=== PATIENT | female | born 1990 | race American Indian/Alaskan Native ===

== ENCOUNTER 2020-12-31 01:06 | Inpatient (IN) | payer MEDICAID ==
[2020-12-31] MEDS ORDERED: LIDOCAINE (2%) 20 MG/1 ML VIAL 20 ML MDV INFILTRATI ONE ×2 (01:15→02:01)
[2020-12-31] MEDS ORDERED: OXYTOCIN 10 UNIT/1 ML INJ ONE (01:15)
[2020-12-31] MEDS ORDERED: LOPERAMIDE 2 MG CAP PO PRN (02:01)
[2020-12-31] MEDS ORDERED: ePHEDrine SULFATE 50 MG/1 ML INJ IV PRN (02:01)
[2020-12-31] MEDS ORDERED: TERBUTALINE 1 MG/1 ML INJ SUB-Q PRN (02:01)
[2020-12-31] MEDS ORDERED: METHYLERGONOVINE MALEATE 0.2 MG/ML VIAL IM PRN (02:01)
[2020-12-31] MEDS ORDERED: CARBOPROST TROMETHAMINE 250 MCG/1 ML INJ IM PRN (02:01)
[2020-12-31] MEDS ORDERED: OXYTOCIN 10 UNIT/1 ML INJ IM PRN (02:01)
[2020-12-31] MEDS ORDERED: miSOPROStol 200 MCG TAB PR PRN (02:01)
[2020-12-31] MEDS ORDERED: OXYTOCIN 10 UNIT/1 ML INJ IM ONE (02:05)
[2020-12-31] MEDS ORDERED: LANOLIN/ZINC/DIMETHICONE (LANSINOH) 7 GM TP PRN (02:06)
[2020-12-31] MEDS ORDERED: MAGNESIUM HYDROXIDE (MOM) ORAL LIQD UDC PO PRN (02:06)
[2020-12-31] MEDS ORDERED: WITCH HAZEL/ GLYCERIN PAD TP PRN (02:06)
--- NOTE | 2020-12-31 02:14 | History and Physical Report ---
History of Present Illness Date of examination: 12/31/20 Date of admission: 12/31/20 02:01 Chief complaint: Contractions and leaking of water History of present illness: 30 year old female presents to L&D in active labor with urge to push . Patient reports leaking of clear fluid from vagina around midnight tonight. No records are available. labs were drawn upon admission. Patient states she receives care at [facility] and she states her due date is 01/07/21. Pt. states she is negative for GBS. Past History Past Medical History: other (obesity) Past Surgical History: no surgical history [facility] History: denies: abnormal PAP smear, chlamydia, gonorrhea, hepatitis B, hepatitis C, herpes, HIV, syphilis, trichomonas Family/Genetic History: none Social history: lives with family, full code. denies: smoking, alcohol abuse, prescription drug abuse, IV drug use - Obstetrical History Expected Date of Delivery: 01/07/21 Actual Gestation: 39 Week(s) 0 Day(s) : 8 Para: 2 Hx # Term Pregnancies: 1 Number of Pregnancies: 1 Spontaneous Abortions: 1 Induced : 4 Number of Living Children: 2 Medications and Allergies Allergies Allergy/AdvReac Type Severity Reaction Status Date / Time No Known Allergies Allergy Unverified 12/30/20 11:52 Home Medications Medication Instructions Recorded Confirmed Last Taken Type No Known Home Medications [No 12/30/20 12/30/20 Unknown History Reported Home Medications] Active Meds: Active Medications Hydrocodone Bitart/Acetaminophen (Hydrocodone/Acetaminophen 5-325 Mg Tab) 2 each PO Q6H PRN PRN Reason: Pain, Moderate (4-6) Carboprost Tromethamine (Carboprost Tromethamine 250 Mcg/1 Ml Inj) 250 mcg IM ONCE PRN PRN Reason: Uterine Bleeding Ephedrine Sulfate (Ephedrine Sulfate 50 Mg/1 Ml Inj) 10 mg IV Q2M PRN PRN Reason: Hypotension Oxytocin/Sodium Chloride (Pitocin/Ns 30 Unit/500ml) 30 units in 500 mls @ 2 mls/hr IV TITR REBECCA; Protocol Lactated Ringer's (Lactated Ringers) 1,000 mls @ 125 mls/hr IV DIRECT REBECCA Oxytocin/Sodium Chloride (Pitocin/Ns 30 Unit/500ml) 30 units in 500 mls @ 40 mls/hr IV TITR REBECCA; Protocol Ibuprofen (Ibuprofen 600 Mg Tab) 600 mg PO Q6H REBECCA Loperamide HCl (Loperamide 2 Mg Cap) 2 mg PO ONCE PRN PRN Reason: give with Hemabate Magnesium Hydroxide (Magnesium Hydroxide (Mom) Oral Liqd Udc) 30 ml PO HS PRN PRN Reason: Constipation Misoprostol (Misoprostol 200 Mcg Tab) 800 mcg UT ONCE PRN PRN Reason: Uterine Bleeding Multi-Ingredient Ointment (Lanolin/Zinc/Dimethicone (Lansinoh) 7 Gm) 1 applic TP PRN PRN PRN Reason: Sore Nipples Oxytocin (Oxytocin 10 Unit/1 Ml Inj) 10 unit IM ONCE PRN PRN Reason: Uterine Bleeding Oxytocin (Oxytocin 10 Unit/1 Ml Inj) 10 unit IM ONCE ONE Stop: 12/31/20 02:06 Sodium Chloride (Sodium Chloride 0.9% 10 Ml Flush Syringe) 10 ml IV PRN NR Witch Emelina/Glycerin (Witch Emelina/ Glycerin Pad) 1 each TP PRN PRN PRN Reason: Hemorrhoid/cleansing/soothing Review of Systems All systems: negative (contractions, leaking of water) - Physical Exam Abdomen: Positive: normal appearance, soft. Negative: distention, tenderness, guarding, rigidity Genitourinary (Female): Positive: normal external genitalia, normal perenium. Negative: perineal/vulvar lesions Uterus: Positive: enlarged. Negative: tender Anus/Rectum: Positive: normal perianal skin Extremities: Negative: tenderness, edema - Obstetrical Uterine Contraction Monitor Mode: External Cervical Dilatation: 9 Cervical Effacement Percentage: 100 station: 0 Uterine Contraction Pattern: Regular Uterine Contraction Intensity: Strong/Firm Results All other labs normal. Assessment and Plan A: at 39 weeks gestation. Active advanced labor. No records available. P: Admit. Anticipate precipitous . Draw labs. Request records.
[2020-12-31] MEDS ORDERED: LACTATED RINGERS 1,000 ML IV SCH (02:15)
--- NOTE | 2020-12-31 02:15 | Procedure Note ---
OB Delivery Note - Delivery Date of Delivery: 12/31/20 Surgeon: JOHN BLANCO Estimated blood loss: other (250 cc) - Vaginal Delivery presentation: vertex Intrapartum events: precipitous labor- <3hr Delivery induction: none Delivery monitor: external FHT, external uterine, internal FHT Route of delivery: Delivery placenta: spontaneous Delivery cord: nuchal cord, 3 umbilical vessels Episiotomy: none Delivery laceration: none Anesthesia: none Delivery comments: Spontaneous vaginal delivery at 01:30 of liveborn female weighing 5 lb. 5.2 oz. over intact perineum with apgars of 8/9. Precipitous delivery; was atraumatic. Loose nuchal cord times 1, manually reduced. Baby placed skin to skin with mom immediatately after . Baby dried with warm towels and s uctioned with bulb syringe. Spontaneous cry and respirations. 3 vessel cord double clampted and cut. Baby taken to radiant warmer for suctioning. Cord blood obtained. Spontaneous delivery of intact placenta and membranes. Fundus firm and midline. Pitocin given after delivery of placenta. Fundus firm and midline. No lacerations noted. Vaginal sweep negative. Sponge count correct. Mother and baby stable.
[2020-12-31] MEDS: HYDROcodone/ACETAMINOPHEN 5-325 MG TAB PO PRN ×2 (02:22→09:43)
[2020-12-31 02:30] LABS: Hematocrit 37.3 % (30.3-42.9); Mean Corpuscular HGB Conc 32 % (30-34); Mean Corpuscular Volume 81 fl (79-97); Platelet Count 285 K/mm3 (140-440); Red Cell Distribution Width 15.2 % (13.2-15.2)
[2020-12-31] MEDS ORDERED: OXYTOCIN DRIP 30 UNITS/500 ML BAG IV SCH ×2 (03:00)
[2020-12-31 03:04] LABS: Hepatitis C Virus Antibody Non-Reactive (NonReactive)
[2020-12-31] MEDS: IBUPROFEN 600 MG TAB PO SCH ×4 (06:26→23:33)
[2020-12-31] MEDS ORDERED: diphenhydrAMINE 25 MG CAP PO PRN (11:52)
[2020-12-31 16:36] LABS: Hemoglobin 9.7 gm/dl (10.1-14.3)
[2021-01-01] MEDS: IBUPROFEN 600 MG TAB PO SCH ×3 (05:25→16:26)
--- NOTE | 2021-01-01 09:22 | Progress Note ---
Assessment and Plan A: S/P Asymptomatic anemia P: Continue routine pp care Fe prescribed D/C home in am Subjective - Subjective Date of service: 01/01/21 Principal diagnosis: s/p Patient reports: appetite normal, voiding normally, pain well controlled, ambulating normally : doing well, nursing well Objective - Vital Signs Latest vital signs: Vital Signs Temp Pulse Resp BP Pulse Ox 01/01/21 05:25 20 01/01/21 05:10 98.0 F 60 18 106/55 98 12/31/20 23:33 20 12/31/20 16:25 97.8 F 66 20 107/59 98 12/31/20 12:10 98.0 F 66 20 94/60 99 Intake and Output 12/31/20 01/01/21 01/01/21 22:59 06:59 14:59 Intake Total 540 300 Balance 540 300 Intake: Oral 240 Intake, Free Water 300 300 Other: Total, Intake Amount 240 # Voids Void 1 2 - Exam Breasts: Present: normal Abdomen: Present: normal appearance, soft, normal bowel sounds Vulva: both: normal Uterus: Present: normal, firm, fundal height below umbilicus Extremities: Present: normal - Labs Labs: Abnormal lab results 12/31/20 Range/Units 15:07 Hgb 9.7 L (10.1-14.3) gm/dl
[2021-01-01] MEDS: FERROUS SULFATE 325 MG TAB PO SCH ×2 (12:28→22:43)
[2021-01-02] MEDS: IBUPROFEN 600 MG TAB PO SCH ×3 (02:26→12:06)
[2021-01-02] MEDS ORDERED: medroxyPROGESTERone ACETATE 150 MG/ML SYRINGE IM NR (12:28)
--- NOTE | 2021-01-02 12:31 | Progress Note ---
Assessment and Plan A: PP Day #2 Asymptomatic Anemia P: Follow Routine orders Continue PO FeSo4 Depo Provera 150mg IM prior to discharge D/C Home today RTO in 3 Weeks for Sterilization Consult Subjective - Subjective Date of service: 01/02/21 Principal diagnosis: s/p Patient reports: appetite normal, voiding normally, pain well controlled, flatus, bowel movement, ambulating normally : in NICU Objective - Vital Signs Latest vital signs: Vital Signs Temp Pulse Resp BP BP Pulse Ox 01/02/21 08:40 98.2 F 76 20 104/66 01/01/21 23:49 98.6 F 72 16 103/63 100 Intake and Output 01/01/21 01/02/21 01/02/21 22:59 06:59 14:59 Intake Total 240 480 360 Output Total 300 400 Balance 240 180 -40 Intake: Oral 240 240 360 Intake, Free Water 240 Output: Urine 300 400 Void 300 400 Other: Total, Intake Amount 240 240 360 Total, Output Amount 300 400 - Exam Breasts: Present: normal Cardiovascular: Present: Regular rate Lungs: Present: Clear to auscultation, Normal air movement Abdomen: Present: normal appearance, soft, normal bowel sounds Uterus: Present: normal, firm, fundal height below umbilicus Extremities: Present: normal
--- NOTE | 2021-01-02 12:32 | Discharge Summary ---
Providers - Providers Date of Admission: 12/31/20 02:01 Date of discharge: 01/02/21 Attending physician: STACI MAYEN MD Primary care physician: STACI MAYEN MD Hospitalization Reason for admission: active labor Delivery: Episiotomy: none Laceration: none Other procedures: none complications: none Discharge diagnosis: IUP at term delivered baby: female Condition at discharge: Good Disposition: DC-01 TO HOME OR SELFCARE Plan - Provider Discharge Summary Activity: routine, no sex for 6 weeks, no heavy lifting 4 weeks, no strenuous exercise Diet: routine Instructions: routine Additional instructions: [] Smoking cessation referral if applicable(refer to patient education folder for contact #) [] Refer to [facility]'s [facility] Booklet Call your doctor immediately for: * Fever > 100.5 * Heavy vaginal bleeding ( >1 pad per hour) * Severe persistent headache * Shortness of breath * Reddened, hot, painful area to leg or breast * Drainage or odor from incision. * Keep incision clean and dry at all times and follow doctor's instructions regarding bathing/showering - Follow up plan Follow up: STACI MAYEN MD [Primary Care Provider] - 01/23/21
[2021-01-02 17:35] VITALS: BP 118/56
== END 2021-01-02 18:10 | disposition home or self-care (01) | DRG 775 ==
LOC: TRG 01:06 → LD 01:14 → TRG 02:01 → LD 02:01 → OB 03:54
PROC: 10E0XZZ Delivery of Products of Conception, External Approach (ICD-10-PCS; principal; 2020-12-31)
DX: O62.3 Precipitate labor (principal); Z3A.39 39 weeks gestation of pregnancy; Z37.0 Single live birth; O99.214 Obesity complicating childbirth; O99.03 Anemia complicating the puerperium; Z20.822 Contact with and (suspected) exposure to COVID-19; D64.9 Anemia, unspecified
CPT/HCPCS: 36415; 59025; 76815; 76819; 84112; 85014; 85018; 85027; 86592; 86706; 86762; 86803; 86850; 86900; 86901; 87806; 99211; G0378; G0463; J2590; U0003

== ENCOUNTER 2022-02-22 02:08 | Inpatient (IN) | payer MEDICAID ==
[2022-02-22] MEDS ORDERED: LOPERAMIDE 2 MG CAP PO PRN ×2 (03:51→05:25)
[2022-02-22] MEDS ORDERED: MINERAL OIL 30 ML ORAL LIQD PO PRN ×2 (03:51→05:25)
[2022-02-22] MEDS ORDERED: PENICILLIN G POTASSIUM 5 MIL.UNITS in SODIUM CHLORIDE 0.9% 100 ML IV ONE (03:51)
[2022-02-22] MEDS ORDERED: LIDOCAINE (2%) 20 MG/1 ML VIAL 20 ML MDV INFILTRATI ONE ×2 (03:51→05:25)
[2022-02-22] MEDS ORDERED: TERBUTALINE 1 MG/1 ML INJ SUB-Q PRN ×2 (03:51→05:25)
[2022-02-22] MEDS ORDERED: METHYLERGONOVINE MALEATE 0.2 MG/ML VIAL IM PRN ×2 (03:51→05:25)
[2022-02-22] MEDS ORDERED: OXYTOCIN 10 UNIT/1 ML INJ IM PRN ×2 (03:51→05:25)
[2022-02-22] MEDS ORDERED: ONDANSETRON 4 MG/2 ML INJ IV PRN ×2 (03:51→06:12)
[2022-02-22] MEDS ORDERED: CARBOPROST TROMETHAMINE 250 MCG/1 ML INJ IM PRN ×2 (03:51→05:25)
[2022-02-22] MEDS ORDERED: miSOPROStol 200 MCG TAB PR PRN ×2 (03:51→05:25)
[2022-02-22] MEDS ORDERED: ePHEDrine SULFATE 50 MG/1 ML INJ IV PRN ×2 (03:51→05:25)
[2022-02-22] MEDS ORDERED: OXYTOCIN DRIP 30 UNITS/500 ML BAG IV SCH ×3 (04:00→06:00)
[2022-02-22] MEDS ORDERED: LACTATED RINGERS 1,000 ML IV SCH ×2 (04:00→05:30)
[2022-02-22 04:20] LABS: Hematocrit 36.8 % (30.3-42.9); Hemoglobin 11.5 gm/dl (10.1-14.3); Mean Corpuscular HGB Conc 31 % (30-34); Mean Corpuscular Volume 80 fl (79-97); Platelet Count 302 K/mm3 (140-440); Red Blood Count 4.62 M/mm3 (3.65-5.03); Red Cell Distribution Width 14.7 % (13.2-15.2)
--- NOTE | 2022-02-22 05:05 | History and Physical Report ---
History of Present Illness Date of examination: 02/22/22 Date of admission: 02/22/2022 Chief complaint: I'm having contractions History of present illness: 31 y/o @37 weeks with care at [facility] [employer] [facility] presents to Labor and delivery in active labor. ARMAND 03/14/2022. Past History Past Medical History: migraines Past Surgical History: no surgical history Family/Genetic History: diabetes Social history: no significant social history - Obstetrical History Expected Date of Delivery: 03/14/22 Actual Gestation: 37 Week(s) 1 Day(s) : 8 Para: 3 Number of Living Children: 3 Medications and Allergies Allergies Allergy/AdvReac Type Severity Reaction Status Date / Time No Known Allergies Allergy Verified 12/31/20 10:49 Home Medications Medication Instructions Recorded Confirmed Last Taken Type Plus Tablet 1 tab PO DAILY 12/31/20 12/31/20 12/24/20 History Active Meds: Active Medications Carboprost Tromethamine (Carboprost Tromethamine 250 Mcg/1 Ml Inj) 250 mcg IM ONCE PRN PRN Reason: Uterine Bleeding Ephedrine Sulfate (Ephedrine Sulfate 50 Mg/1 Ml Inj) 10 mg IV Q2M PRN PRN Reason: Hypotension Lactated Ringer's (Lactated Ringers) 1,000 mls @ 125 mls/hr IV DIRECT REBECCA Last Admin: 02/22/22 04:36 Dose: 125 mls/hr Oxytocin/Sodium Chloride (Pitocin/Ns 30 Unit/500ml) 30 units in 500 mls @ 40 mls/hr IV TITR REBECCA; Protocol Penicillin G Potassium 2.5 mil (.units/ Sodium Chloride) 50 mls @ 100 mls/hr IV Q4H REBECCA; Protocol Loperamide HCl (Loperamide 2 Mg Cap) 2 mg PO ONCE PRN PRN Reason: give with Hemabate Methylergonovine Maleate (Methylergonovine Maleate 0.2 Mg/Ml Vial) 0.2 mg IM ONCE PRN PRN Reason: Uterine Bleeding Mineral Oil (Mineral Oil 30 Ml Oral Liqd) 30 ml PO QHS PRN PRN Reason: Constipation Misoprostol (Misoprostol 200 Mcg Tab) 800 mcg VA ONCE PRN PRN Reason: Uterine Bleeding Ondansetron HCl (Ondansetron 4 Mg/2 Ml Inj) 4 mg IV Q8H PRN PRN Reason: Nausea And Vomiting Oxytocin (Oxytocin 10 Unit/1 Ml Inj) 10 unit IM ONCE PRN PRN Reason: Uterine Bleeding Terbutaline Sulfate (Terbutaline 1 Mg/1 Ml Inj) 0.25 mg SUB-Q ONCE PRN PRN Reason: Hyperstimulation/Hypertonicity Review of Systems All systems: negative - Vital Signs Vital signs: Vital Signs Pulse Pulse Ox 85 100 02/22/22 02:47 02/22/22 02:47 Temp Pulse Resp BP Pulse Ox 98.4 F 91 H 17 105/56 99 02/22/22 04:40 02/22/22 04:55 02/22/22 04:40 02/22/22 04:41 02/22/22 04:55 - Physical Exam Breasts: Positive: deferred Cardiovascular: Regular rate Lungs: Positive: Clear to auscultation Abdomen: Positive: soft Genitourinary (Female): Positive: normal external genitalia Vulva: both: normal Vagina: Positive: normal moisture Uterus: Positive: enlarged Anus/Rectum: Positive: normal perianal skin Extremities: Positive: normal Deep Tendon Reflex Grade: Normal +2 - Obstetrical FHR: category 1 Uterine Contraction Monitor Mode: External Cervical Dilatation: 5 Cervical Effacement Percentage: 80 station: -1 Uterine Contraction Pattern: Regular Uterine Contraction Intensity: Moderate Results Result Diagrams: 02/22/22 03:29 Abnormal lab results 02/22/22 Range/Units 03:29 MCH 25 L (28-32) pg All other labs normal. Assessment and Plan A: 37.1 weeks active labor P: Expect GBS unknown - PCN
--- NOTE | 2022-02-22 05:19 | Event Note ---
Date: 02/22/22 S: Feeling ok., contractions spaced out some O: /-1, arom clear fluid, CAT I tracing A: 37.1 weeks in labor P: Expect Pitocin augmentation
[2022-02-22] MEDS ORDERED: ACETAMINOPHEN 325 MG TAB PO PRN ×2 (05:25→06:12)
[2022-02-22] MEDS ORDERED: BUTORPHANOL 2 MG/1 ML INJ IV PRN ×2 (05:25)
[2022-02-22] MEDS ORDERED: PENICILLIN G POTASSIUM 5 MIL.UNITS in SODIUM CHLORIDE 0.9% 50 ML IV ONE (05:25)
[2022-02-22] MEDS ORDERED: PENICILLIN G POTASSIUM 2.5 MIL.UNITS in SODIUM CHLORIDE 0.9% 50 ML IV SCH ×2 (06:00→08:00)
[2022-02-22] MEDS ORDERED: miSOPROStol 200 MCG TAB ONE (06:07)
[2022-02-22] MEDS ORDERED: METHYLERGONOVINE MALEATE 0.2 MG/ML VIAL IM ONE (06:08)
[2022-02-22] MEDS ORDERED: CARBOPROST TROMETHAMINE 250 MCG/1 ML INJ IM ONE (06:08)
--- NOTE | 2022-02-22 06:11 | Procedure Note ---
OB Delivery Note - Delivery Date of Delivery: 02/22/22 Surgeon: STEFFEN SHAFFER Estimated blood loss: 100cc - Vaginal Delivery presentation: vertex Delivery position: OA Intrapartum events: none Delivery induction: none Delivery augmentation: rupture of membranes Delivery monitor: external FHT, external uterine Route of delivery: Delivery placenta: spontaneous Episiotomy: none Delivery laceration: none Anesthesia: none Delivery comments: of a viable female @ 0600 over intact Perineum. Placenta delivered 3 VCI. QBL 100cc. 8/9 - A at 1 minute: 8 at 5 minutes: 9 Infant Gender: Female
[2022-02-22] MEDS ORDERED: WITCH HAZEL/ GLYCERIN PAD TP PRN (06:12)
[2022-02-22] MEDS ORDERED: LANOLIN/ZINC/DIMETHICONE (LANSINOH) 7 GM TP PRN (06:12)
[2022-02-22] MEDS ORDERED: oxyCODONE /ACETAMINOPHEN 5-325MG TAB PO PRN (06:12)
[2022-02-22] MEDS: IBUPROFEN 800 MG TAB PO SCH ×3 (06:53→23:56)
[2022-02-22 12:22] LABS: Hematocrit 33.7 % (30.3-42.9); Hemoglobin 11.1 gm/dl (10.1-14.3); Mean Corpuscular HGB Conc 33 % (30-34); Mean Corpuscular Volume 78 fl (79-97); Platelet Count 249 K/mm3 (140-440); Red Cell Distribution Width 14.8 % (13.2-15.2)
[2022-02-22] MEDS: DOCUSATE SODIUM 100 MG CAP PO SCH (23:57)
[2022-02-23] MEDS: DOCUSATE SODIUM 100 MG CAP PO SCH ×2 (11:22→23:38)
--- NOTE | 2022-02-23 13:00 | Progress Note ---
Assessment and Plan A: PPD1, , intact Ambulating Currently pumping NICU infant P:Continue routine PP care D/C in 24 hrs Subjective - Subjective Date of service: 02/23/22 (1140) Principal diagnosis: Patient reports: appetite normal, voiding normally, pain well controlled, flatus, ambulating normally [place]: in NICU, other (FEEDING TUBE, BILI LIGHTS) Objective - Vital Signs Latest vital signs: Vital Signs Temp Pulse Resp BP BP Pulse Ox Pulse Ox 02/23/22 10:41 98 02/23/22 07:49 98.3 F 68 20 110/62 97 02/23/22 00:35 98.0 F 78 20 101/53 98 02/22/22 19:25 98 02/22/22 16:30 98.7 F 79 18 104/60 99 Intake and Output 02/22/22 02/23/22 02/23/22 23:59 07:59 15:59 Intake Total 960 Balance 960 Intake: Oral 480 Intake, Free Water 480 Other: Total, Intake Amount 240 # Voids Void 1 1 - Exam Breasts: Present: (pumping) Cardiovascular: Present: Regular rate Lungs: Present: Clear to auscultation Abdomen: Present: soft, tenderness Uterus: Present: fundal height below umbilicus Extremities: Present: normal Deep Tendon Reflex Grade: Normal +2 - Labs Labs: Abnormal lab results 02/22/22 Range/Units 12:11 MCV 78 L (79-97) fl MCH 26 L (28-32) pg
--- NOTE | 2022-02-23 13:05 | Discharge Summary ---
Providers - Providers Date of Admission: 02/22/22 05:25 Date of discharge: 02/24/22 Attending physician: MENDOZA RODRIGUEZ Primary care physician: STACI MAYEN MD Hospitalization Reason for admission: active labor Delivery: Episiotomy: none Laceration: none Other procedures: none complications: none Discharge diagnosis: IUP at term delivered [place] baby: female (NICU) Condition at discharge: Good Disposition: 01 HOME / SELF CARE / HOMELESS Plan - Discharge Medications Prescriptions: Ibuprofen [Motrin 800 MG tab] 800 mg PO Q8HR #30 tablet - Provider Discharge Summary Activity: routine, no sex for 6 weeks, no heavy lifting 4 weeks, no strenuous exercise Diet: routine Instructions: routine Additional instructions: [] Smoking cessation referral if applicable(refer to patient education folder for contact #) [] Refer to [facility]'s [facility] Booklet Call your doctor immediately for: * Fever > 100.5 * Heavy vaginal bleeding ( >1 pad per hour) * Severe persistent headache * Shortness of breath * Reddened, hot, painful area to leg or breast * Drainage or odor from incision. * Keep incision clean and dry at all times and follow doctor's instructions regarding bathing/showering - Follow up plan Follow up: STACI MAYEN MD [Primary Care Provider] - 7 Days MENDOZA RODRIGUEZ MD [Staff Physician] - 6 Weeks Forms: [facility] Discharge Summary
[2022-02-23] MEDS: IBUPROFEN 800 MG TAB PO SCH ×2 (13:59→20:07)
[2022-02-24] MEDS: IBUPROFEN 800 MG TAB PO SCH ×3 (05:35→18:15)
[2022-02-24] MEDS: DOCUSATE SODIUM 100 MG CAP PO SCH (11:02)
[2022-02-24 19:03] VITALS: BP 104/69
== END 2022-02-24 19:20 | disposition home or self-care (01) | DRG 775 ==
LOC: TRG 02:08 → APU 02:10 → LD 04:33 → TRG 05:25 → LD 05:25 → OB 08:23
PROVIDERS: ADMIT Obstetrics & Gynecology; ATTEND Obstetrics & Gynecology
PROC: 10E0XZZ Delivery of Products of Conception, External Approach (ICD-10-PCS; principal; 2022-02-22)
PROC: 10907ZC Drainage of Amniotic Fluid, Therapeutic from Products of Conception, Via Natural or Artificial Opening (ICD-10-PCS; 2022-02-22)
DX: O99.354 Diseases of the nervous system complicating childbirth (principal); Z37.0 Single live birth; Z3A.37 37 weeks gestation of pregnancy; Z20.822 Contact with and (suspected) exposure to COVID-19; G43.909 Migraine, unspecified, not intractable, without status migrainosus
CPT/HCPCS: 36415; 85014; 85018; 85027; 86592; 86850; 86900; 86901; G0378; J2210; J2540; J7120; U0003